=== PATIENT | male | born 1935 | race Caucasian/White ===

== ENCOUNTER 2016-08-03 15:04 | Emergency (ER) | payer OTHER, MEDICARE ==
--- NOTE | 2016-08-03 15:21 | EDPHY ---
H & P Time Seen by Provider: 08/03/16 15:14 HPI/ROS: CHIEF COMPLAINT: Shortness of breath. HISTORY OF PRESENT ILLNESS: The patient is an 81 year old male with history of COPD who presents with 3 days of increasing shortness of breath. The patient has ongoing shortness of breathand is currently on a prednisone taper. He is treated by a mechanical laboratory technician and is on chronic O2 at night. Over the past 3 days his shortness of breath has worsened. He states his symptoms are worse when lying flat. The patient attributes his symptoms to an upper respiratory infection. He complains of productive cough with white sputum as well as rhinorrhea. He denies associated chest pain or fever. The patient additionally has ongoing lower extremity edema without recent change, despite stopping his 20mg dose of Lasix 3 days ago. REVIEW OF SYSTEMS: A comprehensive 10 point review of systems is otherwise negative aside from elements mentioned in the history of present illness. Past Medical/Surgical History: Renal insufficiency, Hyperlipidemia, Hypertension, Hypothyroidism, Kidney stones , Bladder cancer, Prostate hypertrophy. Social History: . Smoking Status: Former smoker Physical Exam: General Appearance: Alert, pleasant Eyes: Pupils equal and round, no conjunctival pallor or injection ENT, Mouth: Mucous membranes moist Neck: Normal inspection Respiratory: Inspiratory and expiratory wheezes. Cardiovascular: Regular rate and rhythm Gastrointestinal: Abdomen is soft and non-tender Neurological: A&O, nonfocal, normal gait Skin: Warm and dry, no rash Extremities: Nontender, mild pedal edema Psychiatric: Mood and affect normal Constitutional: Initial Vital Signs Temperature (C) 36.4 C 08/03/16 15:10 Heart Rate 102 H 08/03/16 15:10 Respiratory Rate 28 H 08/03/16 15:10 Blood Pressure 159/91 H 08/03/16 15:10 O2 Sat (%) 92 08/03/16 15:10 O2 Delivery Mode Room Air Allergies/Adverse Reactions: No Known Allergies Allergy (Verified 08/03/16 15:04) Home Medications: Medication Instructions Recorded Doxazosin Mesylate [Cardura] 8 mg PO DAILY 03/27/12 Levothyroxine [Synthroid 125 mcg 125 mcg PO DAILY06 03/27/12 (RX)] Simvastatin [Zocor 10 mg (RX)] 10 mg PO DAILY18 03/27/12 Ascorbic Acid [Vitamin C 500 mg 500 mg PO DAILY 02/06/13 (OTC)] Aspirin [Aspirin 81mg (OTC)] 81 mg PO DAILY 02/06/13 Multivitamins [Tab-A-Rene] 1 each PO DAILY 02/07/13 traMADol [Ultram] 50 - 100 mg PO Q6 PRN 02/07/13 Albuterol [Proventil Inhaler] 1 - 2 puffs IH Q4 PRN 03/11/13 Bancroft-3 Fatty Acids [Fish Oil 1000 1,000 mg PO DAILY 03/11/13 mg (OTC)] Phenazopyridine HCl [Pyridium 200 mg PO Q8 03/11/13 200mg (RX)] Docusate Sodium [Colace 100 MG (*)] 100 mg PO TID #20 cap 03/21/16 Atenolol 08/03/16 Budesonide 08/03/16 Lasix 08/03/16 Montelukast Sodium 08/03/16 Omeprazole 08/03/16 Prednisone 08/03/16 Medical Decision Making - Diagnostics EKG Interpretation: The 12 lead EKG was interpreted by myself. See hard copy and/or "tracemaster" electronic copy for interpretation: Sinus rhythm. Left axis deviation. ED Course/Re-evaluation: The patient is an 81 year old male with history of COPD presenting with shortness of breath. The patient has ongoing shortness of breath. He uses a nebulizer and is on chronic O2 at night. Over the past 3 days the patient's shortness of breath has worsened. The patient attributes his symptoms to an URI. On exam, the patient has inspiratory and expiratory wheezes. He received a DuoNeb and 125mg Solu-Medrol IV. Chest x-ray is pending. CBC, CHEM, and d-dimer were ordered. X-ray of the chest was obtained. I viewed the images myself on the PACS system. RML atelectasis present; no infiltrate. The patient has an elevated D-dimer. Plan for CT Angio of his chest. 5:05 p.m.: I reexamined the patient. His respiratory rate has improved. Patient has decreased wheezing and normal respiratory rate. . CTA of the chest was obtained. I viewed the images myself on the PACS system. CTA reveals no evidence of PE or pneumonia; atelectasis present. Pt continues to feel better after the duoneb. O2 sat on RA 95%, ambulates without SOB. BNP is slightly elevated, and he may have a component of pulmonary edema contributing to his SOB. He declines IV/po Lasix in the ED. He was encouraged to resume his normal dosage of Lasix and to f/u with his mechanical laboratory technician. Differential Diagnosis: includes though not limited to PE, pneumonia, pulmonary edema, ACS - Data Points Laboratory Results: Laboratory Results 08/03/16 15:22 08/03/16 15:22 Medications Given: Discontinued Medications Albuterol/Ipratropium (Duoneb) 3 ml IH EDNOW ONE Stop: 08/03/16 15:44 Last Admin: 08/03/16 15:51 Dose: 3 ml Methylprednisolone Sodium Succinate (Solu-Medrol) 125 mg IVP EDNOW ONE Stop: 08/03/16 15:44 Last Admin: 08/03/16 15:51 Dose: 125 mg Departure - Departure Disposition: Home, Routine, Self-Care Clinical Impression: COPD exacerbation Condition: Good Instructions: COPD (Chronic Obstructive Pulmonary Disease) (ED) Additional Instructions: 1. Continue Prednisone as prescribed. 2. Continued Nebulizers every 6 hours. 3. Resume taking your Lasix as prescribed. 4. Return to the Emergency Department with new or worsening symptoms. Referrals: GOKUL ANAYA [Primary Care Provider] - As per Instructions Report Scribed for: Janice Clemente Report Scribed by: Ying Covarrubias Date of Report: 08/03/16 Time of Report: 15:20 Physician Review and Approval Statement: 08/03/16 15:20 Portions of this note were transcribed by a medical technician. I personally performed the history, physical exam, and medical decision-making; and confirmed the accuracy of the information in the transcribed note.
--- NOTE | 2016-08-03 15:25 | CPEKG ---
Heart Rate: 90 RR Interval: 667 P-R Interval: 184 QRSD Interval: 70 QT Interval: 352 QTC Interval: 431 P [place]: 20 QRS [place]: -44 T Wave [place]: 47 EKG Severity - BORDERLINE ECG - EKG Impression: SINUS RHYTHM EKG Impression: PROBABLE LEFT ATRIAL ABNORMALITY EKG Impression: LEFT AXIS DEVIATION Electronically Signed By: Sergio Gonzalez 04-Aug-2016 08:59:29
[2016-08-03 15:37] LABS: % IMMATURE GRANULYOCYTES 0.5 % (0.0-1.1); ABSOLUTE IMMATURE GRANULOCYTES 0.05 10^3/uL (0.00-0.10); ADD DIFF? NO; ADD MORPH? NO; ADD SCAN? NO; ATYPICAL LYMPHOCYTE FLAG 50 (0-99); FRAGMENT RBC FLAG 0 (0-99); HEMATOCRIT 45.1 % (40.0-51.0); HEMOGLOBIN 15.1 g/dL (13.7-17.5); LEFT SHIFT FLG 0 (0-99); LIPEMIA HEMOLYSIS FLAG 80 (0-99); MEAN CELL HEMOGLOBIN 31.9 pg (27.9-34.1); MEAN CELL HEMOGLOBIN CONCENTR. 33.5 g/dL (32.4-36.7); MEAN CELL VOLUME 95.1 fL (81.5-99.8); MEAN PLATELET VOLUME 9.3 fL (8.7-11.7); PLATELET CLUMPS FLAG 0 (0-99); PLATELET COUNT 124 10^3/uL (150-400); RED BLOOD CELL COUNT 4.74 10^6/uL (4.40-6.38); RED CELL DISTRIBUTION WIDTH 12.2 % (11.5-15.2)
[2016-08-03] MEDS ORDERED: IPRATROPIUM/ALBUTEROL 3 ML DEYVIAL IH ONE (15:43)
[2016-08-03] MEDS ORDERED: methylPREDNISolone SOD SUCC 125 MG/2 ML VIAL IVP ONE (15:43)
[2016-08-03 15:47] LABS: ANION GAP 11 mEq/L (8-16); CALCIUM 9.1 mg/dL (8.5-10.4); CARBON DIOXIDE 21 mEq/l (22-31); CHLORIDE 108 mEq/L (97-110); CREATININE 1.5 mg/dL (0.7-1.3); GLOMERULAR FILTRATION RATE 45; GLUCOSE 112 mg/dL (70-100); POTASSIUM 4.7 mEq/L (3.5-5.2); SODIUM 140 mEq/L (134-144)
[2016-08-03 15:59] LABS: TROPONIN I < 0.012 ng/mL (0-0.034)
[2016-08-03 17:02] VITALS: TEMP 97.3
[2016-08-03] MEDS ORDERED: IOPAMIDOL (ISOVUE 370) 100 ML BTL IV ONE (17:02)
[2016-08-03 18:31] VITALS: BP 157/90; PULSE 72; RESP 20; O2SAT 92
== END 2016-08-03 18:31 | disposition home or self-care (01) ==
DX: J44.1 Chronic obstructive pulmonary disease with (acute) exacerbation (principal); I10 Essential (primary) hypertension; Z87.891 Personal history of nicotine dependence; Z79.82 Long term (current) use of aspirin
CPT/HCPCS: 71020; 71275; 93005; 96374; 99285; Q9967

== ENCOUNTER → 2018-05-03 | Outpatient (CLI) | payer OTHER, MEDICARE | LOC: BHFA 13:30 | PROVIDERS: ATTEND Internal Medicine Cardiovascular Disease | DX: R06.02 Shortness of breath (principal) | CPT/HCPCS: 78452; 93017; A9500; J2785 ==

== ENCOUNTER → 2018-05-14 | Outpatient (CLI) | payer OTHER, MEDICARE | LOC: BHFA 14:45 | PROVIDERS: ATTEND Internal Medicine Cardiovascular Disease | DX: I27.20 Pulmonary hypertension, unspecified (principal) ==

== ENCOUNTER 2018-06-14 09:13 | Day surgery (SDC) | payer OTHER, MEDICARE | END 2018-06-14 14:58 | disposition home or self-care (01) | LOC: FCATH 09:13 ==

== ENCOUNTER → 2018-08-30 | Outpatient (CLI) | payer OTHER, MEDICARE | LOC: FIMAGING 12:29 | PROVIDERS: ATTEND Internal Medicine Pulmonary Disease | DX: R16.0 Hepatomegaly, not elsewhere classified (principal); N28.89 Other specified disorders of kidney and ureter; N17.9 Acute kidney failure, unspecified ==

== ENCOUNTER → 2018-09-20 | Outpatient (CLI) | payer OTHER, MEDICARE | LOC: FIMAGING 12:03 | PROVIDERS: ATTEND Internal Medicine Pulmonary Disease | DX: N28.89 Other specified disorders of kidney and ureter (principal); Z53.9 Procedure and treatment not carried out, unspecified reason ==